=== PATIENT | male | born 1970 | race Caucasian/White ===

== ENCOUNTER 2016-10-23 10:54 | Emergency (ER) | payer MEDICAID ==
[~2016-10-23] VITALS: Ht 180.3 cm; Wt 111.1 kg
[2016-10-23] MEDS ORDERED: CLINDAMYCIN 600MG IV 50 ML IV ONE (11:45)
[2016-10-23] MEDS ORDERED: KETOROLAC TROMETH 30 MG/ML 1ML VIAL IV ONE (11:45)
[2016-10-23] MEDS ORDERED: VANCOMYCIN 1GM/250ML D5W 250 ML IV ONE (11:45)
[2016-10-23] MEDS ORDERED: SODIUM CHLORIDE 0.9% 1,000 ML IV ONE (11:45)
[2016-10-23] MEDS ORDERED: BACITRACIN TOP OINT 1 UD PKG TOP ONE (12:00)
[2016-10-23 12:09] LABS: Basophils # (auto) 0.1 uL; Basophils % (auto) 0.6 % (0.0-2.0); Eosinophils # (auto) 0.2 uL; Eosinophils % (auto) 1.4 % (0.0-7.0); Hematocrit 45.5 % (41.0-53.0); Hemoglobin 15.2 g/dL (13.5-17.5); Lymphocytes # (auto) 1.6 uL; Lymphocytes % (auto) 12.7 % (10.0-50.0); Mean Corpuscular Hemoglobin 29.5 pg (28.0-32.0); Mean Corpuscular Hgb Conc. 33.3 g/dL (32.0-36.0); Mean Corpuscular Volume 88.8 fL (80.0-100.0); Mean Platelet Volume 8.3 fL (7.4-10.4); Monocytes # (auto) 1.1 uL; Monocytes % (auto) 8.8 % (0.0-12.0); Neutrophils # (auto) 9.8 uL; Neutrophils % (auto) 76.5 % (37.0-80.0); Platelet Count (auto) 345 10^3/uL (140-450); Red Cell Distribution Width 12.7 % (11.6-16.0); White Blood Cell 12.8 10^3/uL (4.4-10.8)
[2016-10-23 12:53] LABS: Albumin 3.2 g/dL (3.4-5.0); BUN/Creatinine Ratio 9.1; Bilirubin, Total 0.5 mg/dL (0.2-1.0); Calcium 9.2 mg/dL (8.5-10.1); Total Protein 8.2 g/dL (6.4-8.2)
[2016-10-23] MEDS ORDERED: MEROPENEM 1GM IVPB 100 ML IV SCH (15:00)
[2016-10-23 16:22] VITALS: BP 125/82
== END 2016-10-23 18:16 | disposition critical access hospital (66) ==
LOC: ER 11:02
DX: L03.114 Cellulitis of left upper limb (principal); Z88.1 Allergy status to other antibiotic agents; W54.0XXA Bitten by dog, initial encounter; Y93.89 Activity, other specified; Y99.8 Other external cause status; Y92.89 Other specified places as the place of occurrence of the external cause
CPT/HCPCS: 36415; 73130; 80053; 85025; 87040; 96365; 96366; 96367; 96368; 96375; 99285; J1885; J2185; J3370; J3490; J7030

== ENCOUNTER 2016-12-21 12:43 | Emergency (ER) | payer MEDICAID ==
[~2016-12-21] VITALS: Ht 177.8 cm; Wt 104.3 kg
[2016-12-21] MEDS ORDERED: KETOROLAC TROMETH 60MG/2ML VIAL IM ONE (14:45)
[2016-12-21 14:58] VITALS: BP 157/103
== END 2016-12-21 15:12 | disposition home or self-care (01) ==
LOC: ER 12:53
DX: S20.211A Contusion of right front wall of thorax, initial encounter (principal); F10.10 Alcohol abuse, uncomplicated; I10 Essential (primary) hypertension; F20.9 Schizophrenia, unspecified; F31.9 Bipolar disorder, unspecified; Z59.0 Homelessness; Z88.1 Allergy status to other antibiotic agents; Y08.89XA Assault by other specified means, initial encounter; Y93.89 Activity, other specified; Y92.89 Other specified places as the place of occurrence of the external cause; Y99.8 Other external cause status
CPT/HCPCS: 71020; 96372; 99284; J1885

== ENCOUNTER 2017-01-03 13:07 | Emergency (ER) | payer MEDICAID ==
[~2017-01-03] VITALS: Ht 177.8 cm; Wt 99.8 kg
[2017-01-03 13:35] VITALS: BP 146/84
== END 2017-01-03 15:52 | disposition left against medical advice (07) ==
LOC: EDBD 13:07 → ER 13:16
DX: H57.12 Ocular pain, left eye (principal); R07.81 Pleurodynia; Z53.21 Procedure and treatment not carried out due to patient leaving prior to being seen by health care provider; Y08.89XA Assault by other specified means, initial encounter; Y93.89 Activity, other specified; Y99.8 Other external cause status; Y92.89 Other specified places as the place of occurrence of the external cause

== ENCOUNTER 2017-02-02 16:10 | Emergency (ER) | payer MEDICAID ==
[~2017-02-02] VITALS: Ht 180.3 cm; Wt 98.9 kg
[2017-02-02 16:52] VITALS: BP 141/91
[2017-02-02] MEDS ORDERED: KETOROLAC TROMETH 60MG/2ML VIAL IM ONE (17:00)
== END 2017-02-02 17:11 | disposition home or self-care (01) ==
LOC: ER 16:14
DX: S20.211D Contusion of right front wall of thorax, subsequent encounter (principal); I10 Essential (primary) hypertension; Z59.0 Homelessness; Y09 Assault by unspecified means; Z88.1 Allergy status to other antibiotic agents
CPT/HCPCS: 96372; 99283; J1885

== ENCOUNTER 2017-03-08 09:24 | Emergency (ER) | payer MEDICAID ==
[~2017-03-08] VITALS: Ht 177.8 cm; Wt 90.7 kg
[2017-03-08] MEDS ORDERED: HYDROcodone-ACET 10/325MG TAB PO ONE (10:30)
[2017-03-08 12:57] VITALS: BP 136/89
== END 2017-03-08 13:26 | disposition home or self-care (01) ==
LOC: ER 09:24
DX: S86.911A Strain of unspecified muscle(s) and tendon(s) at lower leg level, right leg, initial encounter (principal); I10 Essential (primary) hypertension; Z88.1 Allergy status to other antibiotic agents; Z59.0 Homelessness; W18.39XA Other fall on same level, initial encounter; Y93.89 Activity, other specified; Y92.89 Other specified places as the place of occurrence of the external cause; Y99.8 Other external cause status
CPT/HCPCS: 73700

== ENCOUNTER 2017-03-13 12:58 | Emergency (ER) | payer MEDICAID ==
[~2017-03-13] VITALS: Ht 180.3 cm; Wt 95.8 kg
[2017-03-13 12:59] VITALS: BP 178/110
[2017-03-13] MEDS ORDERED: IBUPROFEN 800 MG TAB PO ONE (15:15)
== END 2017-03-13 15:22 | disposition home or self-care (01) ==
LOC: ER 12:58
DX: S83.91XA Sprain of unspecified site of right knee, initial encounter (principal); I10 Essential (primary) hypertension; Z88.1 Allergy status to other antibiotic agents; X50.1XXA Overexertion from prolonged static or awkward postures, initial encounter; Y93.89 Activity, other specified; Y99.8 Other external cause status; Y92.89 Other specified places as the place of occurrence of the external cause

== ENCOUNTER 2017-06-12 15:33 | Emergency (ER) | payer MEDICAID ==
[~2017-06-12] VITALS: Ht 180.3 cm; Wt 108.9 kg
[~2017-06-12 15:33] MED LIST: ASPI325T4 PO; DIPH-506 OR
[2017-06-12 17:28] VITALS: BP 153/107
[2017-06-12] MEDS ORDERED: IBUPROFEN 600 MG TAB PO ONE (18:00)
== END 2017-06-12 20:22 | disposition home or self-care (01) ==
LOC: ER 15:40
DX: S86.911A Strain of unspecified muscle(s) and tendon(s) at lower leg level, right leg, initial encounter (principal); S96.911A Strain of unspecified muscle and tendon at ankle and foot level, right foot, initial encounter; Z79.82 Long term (current) use of aspirin; I10 Essential (primary) hypertension; Z90.49 Acquired absence of other specified parts of digestive tract; Z59.0 Homelessness; Z88.8 Allergy status to other drugs, medicaments and biological substances; Z79.899 Other long term (current) drug therapy; W18.39XA Other fall on same level, initial encounter; Y93.89 Activity, other specified; Y92.89 Other specified places as the place of occurrence of the external cause; Y99.8 Other external cause status
CPT/HCPCS: 29515; 73562; 73610; 73630